=== PATIENT | female | born 2000 | race Caucasian/White ===

== ENCOUNTER 2022-09-19 11:27 | Outpatient (REF) | payer OTHER, SELFPAY ==
[2022-09-19 12:55] LABS: Influenza A PCR POSITIVE (Negative); Influenza B PCR NEGATIVE (Negative); Resp Syncy Virus RNA Qual PCR NEGATIVE (Negative); SARS COV2 PCR INHOUSE NEGATIVE (Negative)
== END 2022-09-19 11:28 | disposition home or self-care (01) ==
LOC: HO.LNP 11:27
PROVIDERS: Visit Provider Physician Assistant
DX: Z20.822 Contact with and (suspected) exposure to COVID-19 (principal); B34.9 Viral infection, unspecified
CPT/HCPCS: 0241U